=== PATIENT | male | born 1960 | race Caucasian/White ===

== ENCOUNTER 2016-11-22 23:07 | Emergency (ER) | payer BC ==
--- NOTE | ~2016-11-22 | CR63 ---
[facility]. [facility] A Service of [facility] & [facility] RADIOLOGY TEXT RESULTS PATIENT: WAYNE SPRAGUE LOCATION: SED : 64 UNIT #: [id number] AGE: [address]: Nate Mcfarland MD SEX: M ORDER DR: [id number] [place] [id number] E MR#: [id number] Acc #: [id number] NAME: WAYNE SPRAGUE : 1960 SEX: M STUDY DATE/TIME: 11/22/2016 23:07 UNIT: SED ROOM: STUDY DESCRIPTION: CR Chest 2 View Attending Physician: Nate Mcfarland M.D. Ordering Physician: Nate Mcfarland M.D. Primary Care Physician: Primary Care Physician No MEDICAL IMAGING REPORT This report is preliminary unless electronic signature is present. EXAM PA and lateral chest HISTORY Cough, fever and chills for 1 month. FINDINGS PA and lateral examination of the chest upright shows a good expansion of the parenchyma with a normal distribution of the pulmonary vascularity. There is no indication of congestion, effusion, infiltrate, tumor, or nodular density. The pleural reflections and diaphragmatic contours are normal. The cardiac silhouette and mediastinal anatomy is within normal limits. IMPRESSION Normal chest. Dictated by... Rommel Wilson M.D. THIS IS AN ELECTRONICALLY VERIFIED REPORT Rommel Wilson M.D. at 11/23/2016 3:20 PM TOD/linden TD: 11/23/2016 08:59 JOB #: [id number] MEDICAL IMAGING REPORT
[~2016-11-22 23:07] MED LIST: ACCUPRIL; ATACAND; ATENOLOL; NORCO 10/3251 TAB; PERMETHRIN60 GM TP; ZYRTEC10 M2 PO; [UNRECOGNIZED DRUG - OTHER]
== END 2016-11-23 00:36 | disposition home or self-care (01) ==
LOC: SED 23:07
DX: J20.9 Acute bronchitis, unspecified (principal); I10 Essential (primary) hypertension
CPT/HCPCS: 71020; 99283